=== PATIENT | female | born 1955 | race Caucasian/White ===

== ENCOUNTER 2017-05-11 08:58 | Emergency (ER) | payer OTHER ==
[~2017-05-11] VITALS: Ht 172.7 cm; Wt 72.7 kg
[~2017-05-11 08:58] MED LIST: AMOXICILLIN500 MG PO; AUGMENTIN500TAB PO; BACTRIM DS1 TAB PO; CIPROFLOXACN500 MG PO; CYMBALTA30 MG PO; DOXYCYCL HYC100 MG PO; KEFLEX500 M1 PO; NAPROSYN500 MG PO; PROTONIX40 MG PO; TRAMADOL; TRAMADOL HCL50 MG PO; TRAZODONE50 MG PO; ULTRAM50 M1 PO; ULTRAM50 MG PO
[2017-05-11 11:15] LABS: IMMATURE GRANULOCYTES 0.2 % (0.0-1.0); MEAN CELL VOLUME 100.4 fL CALC (80.0-100.0); MEAN CORPUSCULAR HGB 30.7 pG CALC (26.0-32.0); MEAN CORPUSCULAR HGB CONC 30.5 g/L CALC (32.0-36.0); NEUT# 2.52 thou/uL (2.00-7.15); RED BLOOD COUNT 2.74 mill/uL (4.20-5.60); RED CELL DISTRI WIDTH 15.6 % (11.5-15.5)
[2017-05-11 11:28] LABS: HEMATOCRIT 27.5 % (37.0-47.0); HEMOGLOBIN 8.4 g/dl (12.0-16.0)
[2017-05-11 11:29] LABS: ALBUMIN 3.6 g/dL (3.2-5.0); ALKALINE PHOSPHATASE 204 u/l (38-126); ANION GAP 14 (6-22 (CALC)); BILIRUBIN, TOTAL 0.5 mg/dL (0.0-1.4); BUN 11 mg/dL (7-17); BUN/CREATININE RATIO 15 (12-20 (CALC)); CARBON DIOXIDE 25 mmol/l (22-30); CHLORIDE 110 mmol/l (95-108); CREATININE 0.7 mg/dL (0.5-1.0); GFR > 60 ML/MIN (>=60 (CALC)); GFR FOR AFR.AMER. > 60 ML/MIN (>=60 (CALC)); LIPASE 139 u/l (23-300); POTASSIUM 3.9 mmol/l (3.5-5.1); SGOT/AST 84 u/l (14-36); SGPT/ALT 75 u/l (9-52); SODIUM 145 mmol/l (137-146); TOTAL PROTEIN 7.6 g/dL (6.3-8.2)
[2017-05-11 12:01] LABS: URINE BILIRUBIN - DIPSTICK NEGATIVE (NEGATIVE); URINE BLOOD DIPSTICK NEGATIVE (NEGATIVE); URINE COLOR YELLOW; URINE GLUCOSE - DIPSTICK NEGATIVE (NEGATIVE); URINE KETONE NEGATIVE (NEGATIVE); URINE LEUK ESTERASE TRACE (NEGATIVE); URINE PROTEIN - DIPSTICK NEGATIVE (NEG-TRACE); URINE UROBILINOGEN - DIPSTICK 0.2 E.U./dL (0.2)
[2017-05-11 12:11] LABS: URINE CLARITY HAZY; URINE NITRITE - DIPSTICK POSITIVE (Negative)
[2017-05-11 12:12] LABS: URINE BACTERIA MANY hpf; URINE EPITHELIAL CELLS FEW EPI/hpf (0-FEW)
[2017-05-11] MEDS ORDERED: BACTRIM DS1 TAB PO (13:32)
[2017-05-11 13:52] VITALS: BP 150/92
== END 2017-05-11 13:37 | DRG 690 ==
LOC: ED 08:58
PROVIDERS: Emergency Medicine
DX: N39.0 Urinary tract infection, site not specified (principal); I85.10 Secondary esophageal varices without bleeding; K76.6 Portal hypertension; R18.8 Other ascites; K74.60 Unspecified cirrhosis of liver; R10.84 Generalized abdominal pain
CPT/HCPCS: Q9967

== ENCOUNTER 2017-05-18 17:15 | Emergency (ER) | payer OTHER ==
[~2017-05-18] VITALS: Ht 172.7 cm; Wt 75.0 kg
[2017-05-18 18:22] LABS: IMMATURE GRANULOCYTES 0.8 % (0.0-1.0); MEAN CELL VOLUME 103.6 fL CALC (80.0-100.0); MEAN CORPUSCULAR HGB 28.6 pG CALC (26.0-32.0); MEAN CORPUSCULAR HGB CONC 27.6 g/L CALC (32.0-36.0); RED CELL DISTRI WIDTH 17.2 % (11.5-15.5)
[2017-05-18 18:36] LABS: ALBUMIN 2.6 g/dL (3.2-5.0); BILIRUBIN, TOTAL 1.5 mg/dL (0.0-1.4); CREATININE 1.6 mg/dL (0.5-1.0); POTASSIUM 4.9 mmol/l (3.5-5.1); TOTAL PROTEIN 5.8 g/dL (6.3-8.2)
[2017-05-18 18:58] LABS: HEMATOCRIT 14.5 % (37.0-47.0); PLATELET COUNT 209 thou/uL (130-400)
[2017-05-18 18:59] LABS: BAND 7 % (0-8); MANUAL DIFFERENTIAL YES
[2017-05-18 19:00] LABS: ANISOCYTOSIS FEW; HYPOCHROMIA MARKED; MICROCYTOSIS MODERATE
[2017-05-18 20:09] LABS: INTERNATIONAL NORMALIZED RATIO 2.1 RATIO (0.7-1.3); PROTHROMBIN TIME 24.2 SECONDS (9.0-12.5)
[2017-05-18 20:47] LABS: URINE BILIRUBIN - DIPSTICK NEGATIVE (NEGATIVE); URINE BLOOD DIPSTICK TRACE-INTACT (NEGATIVE); URINE CLARITY CLEAR; URINE COLOR YELLOW; URINE GLUCOSE - DIPSTICK NEGATIVE (NEGATIVE); URINE KETONE TRACE mg/dL (NEGATIVE); URINE LEUK ESTERASE NEGATIVE (NEGATIVE); URINE NITRITE - DIPSTICK NEGATIVE (Negative); URINE PH 5.5 (4.5-8.0); URINE PROTEIN - DIPSTICK NEGATIVE (NEG-TRACE); URINE UROBILINOGEN - DIPSTICK 0.2 E.U./dL (0.2)
[2017-05-18 21:30] VITALS: BP 92/54
[2017-05-18 22:00] VITALS: BP 98/63
[2017-05-18 22:55] VITALS: BP 104/55
== END 2017-05-18 22:55 | DRG 872 ==
LOC: ED 17:15
PROVIDERS: Emergency Medicine; Family Medicine
PROC: 02HV33Z Insertion of Infusion Device into Superior Vena Cava, Percutaneous Approach (ICD-10-PCS; principal; 2017-05-18)
PROC: 30233N1 Transfusion of Nonautologous Red Blood Cells into Peripheral Vein, Percutaneous Approach (ICD-10-PCS; 2017-05-18)
PROC: 30233N1 Transfusion of Nonautologous Red Blood Cells into Peripheral Vein, Percutaneous Approach (ICD-10-PCS; 2017-05-18)
DX: A41.9 Sepsis, unspecified organism (principal); I95.9 Hypotension, unspecified; K74.60 Unspecified cirrhosis of liver; K92.2 Gastrointestinal hemorrhage, unspecified; B19.20 Unspecified viral hepatitis C without hepatic coma; D64.9 Anemia, unspecified; E16.2 Hypoglycemia, unspecified; R42 Dizziness and giddiness
CPT/HCPCS: P9016; S0164

== ENCOUNTER 2017-06-11 09:57 | Emergency (ER) | payer OTHER ==
[~2017-06-11] VITALS: Ht 172.7 cm; Wt 90.0 kg
[2017-06-11 11:05] LABS: HEMATOCRIT 34.6 % (37.0-47.0); HEMOGLOBIN 10.7 g/dl (12.0-16.0); MEAN CELL VOLUME 92.5 fL CALC (80.0-100.0); MEAN CORPUSCULAR HGB 28.6 pG CALC (26.0-32.0); MEAN CORPUSCULAR HGB CONC 30.9 g/L CALC (32.0-36.0); NEUT# 1.57 thou/uL (2.00-7.15); RED BLOOD COUNT 3.74 mill/uL (4.20-5.60); RED CELL DISTRI WIDTH 18.2 % (11.5-15.5)
[2017-06-11 11:26] LABS: ALBUMIN 3.1 g/dL (3.2-5.0); ALKALINE PHOSPHATASE 170 u/l (38-126); AMYLASE 99 u/l (30-110); ANION GAP 14 (6-22 (CALC)); BILIRUBIN, TOTAL 1.2 mg/dL (0.0-1.4); BUN 5 mg/dL (7-17); BUN/CREATININE RATIO 8 (12-20 (CALC)); CARBON DIOXIDE 29 mmol/l (22-30); CHLORIDE 102 mmol/l (95-108); CREATININE 0.7 mg/dL (0.5-1.0); GFR > 60 ML/MIN (>=60 (CALC)); GFR FOR AFR.AMER. > 60 ML/MIN (>=60 (CALC)); LIPASE 142 u/l (23-300); POTASSIUM 2.9 mmol/l (3.5-5.1); SGOT/AST 113 u/l (14-36); SGPT/ALT 67 u/l (9-52); SODIUM 142 mmol/l (137-146); TOTAL PROTEIN 8.1 g/dL (6.3-8.2)
[2017-06-11 11:37] LABS: MYOGLOBIN 43 ng/mL (0 - 62)
[2017-06-11 15:10] VITALS: BP 119/67
== END 2017-06-11 15:10 | disposition home or self-care (01) | DRG 313 ==
LOC: ED 09:57
PROVIDERS: Emergency Medicine
PROC: 0W9G30Z Drainage of Peritoneal Cavity with Drainage Device, Percutaneous Approach (ICD-10-PCS; principal; 2017-06-11)
DX: R07.9 Chest pain, unspecified (principal); R18.8 Other ascites; B19.20 Unspecified viral hepatitis C without hepatic coma

== ENCOUNTER 2019-06-24 | Emergency (ER) | payer OTHER ==
[2019-06-24] MEDS ORDERED: TRAMADOL HCL50 MG PO (14:10)
[2019-06-24] MEDS ORDERED: OMEPRAZOLE20 MG PO (14:14)
[2019-06-24] MEDS ORDERED: TRAZODONE50 MG PO (14:14)
[2019-06-24] MEDS ORDERED: GABAPENTIN100 MG PO (14:14)
== END 2019-06-24 14:19 | disposition home or self-care (01) ==
DX: S43.402A Unspecified sprain of left shoulder joint, initial encounter (principal); S50.12XA Contusion of left forearm, initial encounter; W01.198A Fall on same level from slipping, tripping and stumbling with subsequent striking against other object, initial encounter

== ENCOUNTER 2019-11-13 14:59 | Emergency (ER) | payer OTHER ==
[~2019-11-13] VITALS: Ht 172.7 cm; Wt 55.0 kg
[~2019-11-13 14:59] MED LIST changes: +GABAPENTIN100 MG PO; +OMEPRAZOLE20 MG PO
[2019-11-13 15:39] LABS: ALBUMIN 3.3 g/dL (3.2-5.0); BUN 32 mg/dL (8-23); BUN/CREATININE RATIO 31 (12-20 (CALC)); GFR 56 ML/MIN (>=60 (CALC)); GFR FOR AFR.AMER. > 60 ML/MIN (>=60 (CALC))
[2019-11-13 15:46] LABS: RED BLOOD COUNT 1.93 mill/uL (4.20-5.60)
[2019-11-13 15:48] LABS: HEMATOCRIT 16.5 % (37.0-47.0); HEMOGLOBIN 4.6 g/dl (12.0-16.0)
[2019-11-13 15:49] LABS: MYOGLOBIN 49 ng/mL (0 - 62)
[2019-11-13 15:50] LABS: MEAN CELL VOLUME 85.5 fL CALC (80.0-100.0)
[2019-11-13 15:51] LABS: BASO% 0 % (0-3); EOS% 0 % (0-8); LYMPH% 5 % (15-41); MEAN CORPUSCULAR HGB 23.8 pG CALC (26.0-32.0); MEAN CORPUSCULAR HGB CONC 27.9 g/dL CAL (32.0-36.0); MONO% 5 % (2-13); NEUT% 90 % (42-76); PLATELET COUNT 158 thou/uL (130-400); RED CELL DISTRI WIDTH 20.1 % (11.5-15.5)
[2019-11-13 16:06] VITALS: BP 104/53
[2019-11-13 16:06] LABS: SODIUM 132 mmol/l (137-146)
[2019-11-13 16:07] LABS: ALKALINE PHOSPHATASE 78 u/l (38-126); ANION GAP 36 (6-22 (CALC)); BILIRUBIN, TOTAL 2.9 mg/dL (0.0-1.4); CARBON DIOXIDE 5 mmol/l (22-30); CHLORIDE 95 mmol/l (95-108); POTASSIUM 4.4 mmol/l (3.5-5.1); SGOT/AST 714 u/l (9-36)
[2019-11-13 16:22] VITALS: BP 96/53
[2019-11-17 16:00] VITALS: BP 96/53
== END 2019-11-13 16:35 | disposition short-term general hospital (02) ==
LOC: ED 14:59
PROVIDERS: Emergency Medicine
DX: K92.0 Hematemesis (principal); D62 Acute posthemorrhagic anemia; B19.20 Unspecified viral hepatitis C without hepatic coma; E16.2 Hypoglycemia, unspecified; E72.20 Disorder of urea cycle metabolism, unspecified; E87.2 Acidosis; R79.89 Other specified abnormal findings of blood chemistry; Z20.828 Contact with and (suspected) exposure to other viral communicable diseases
CPT/HCPCS: P9016; S0164

== ENCOUNTER 2021-02-16 18:19 | Observation (INO) | payer OTHER ==
[~2021-02-16] VITALS: Ht 172.7 cm; Wt 41.0 kg
[2021-02-16 19:56] LABS: IMMATURE GRANULOCYTES 0.3 % (0.0-5.0); MEAN CORPUSCULAR HGB 31.1 pG CALC (26.0-32.0); MEAN CORPUSCULAR HGB CONC 31.9 g/dL CAL (32.0-36.0); NEUT# 2.57 thou/uL (2.00-7.15); RED BLOOD COUNT 3.7 mill/uL (4.20-5.60); RED CELL DISTRI WIDTH 14.9 % (11.5-15.5)
[2021-02-16 20:03] LABS: HEMATOCRIT 36.1 % (37.0-47.0); HEMOGLOBIN 11.5 g/dl (12.0-16.0); MEAN CELL VOLUME 97.6 fL CALC (80.0-100.0)
[2021-02-16 20:19] LABS: BILIRUBIN, TOTAL 2.4 mg/dL (0.0-1.4); BUN 13 mg/dL (8-23); BUN/CREATININE RATIO 23 (12-20 (CALC)); CREATININE 0.6 mg/dL (0.5-1.0); GFR > 60 ML/MIN (>=60 (CALC)); GFR FOR AFR.AMER. > 60 ML/MIN (>=60 (CALC)); LIPASE 253 u/l (23-300); SGOT/AST 605 u/l (9-36)
[2021-02-16 20:21] LABS: ACT PARTIAL THROMBO TIME 19.8 SECONDS (20.0-32.5); INTERNATIONAL NORMALIZED RATIO 1.4 RATIO (0.7-1.3); PROTHROMBIN TIME 13.9 SECONDS (9.0-12.5)
[2021-02-16 20:32] LABS: ALBUMIN 4.1 g/dL (3.2-5.0); ALKALINE PHOSPHATASE 144 u/l (38-126); ANION GAP 18 (6-22 (CALC)); CARBON DIOXIDE 24 mmol/l (22-30); CHLORIDE 109 mmol/l (95-108); SODIUM 146 mmol/l (137-146); TOTAL PROTEIN 8.1 g/dL (6.3-8.2)
[2021-02-16 20:33] LABS: ETHYL ALCOHOL 519 mg/dl (0-30)
[2021-02-16 23:00] VITALS: BP 102/55
[2021-02-16 23:15] VITALS: BP 87/57
[2021-02-16 23:30] VITALS: BP 94/53
[2021-02-16 23:45] VITALS: BP 106/67
[2021-02-17] VITALS (17 sets, daily range): BP systolic 86–101; BP diastolic 43–63
[2021-02-17] MEDS ORDERED: METHOCARBAMOL500 MG PO (14:45)
[2021-02-17] MEDS ORDERED: FE TABS325 MG PO (14:45)
[2021-02-17] MEDS ORDERED: PROTONIX40 M2 PO (14:46)
[2021-02-17] MEDS ORDERED: LACTULOSE PO (14:47)
[2021-02-17 15:08] LABS: URINE BLOOD DIPSTICK TRACE-INTACT (NEGATIVE); URINE COLOR YELLOW; URINE GLUCOSE - DIPSTICK NEGATIVE (NEGATIVE); URINE KETONE 15 mg/dL (NEGATIVE); URINE PH 6.5 (4.5-8.0); URINE PROTEIN - DIPSTICK NEGATIVE (NEG-TRACE)
[2021-02-17 15:15] LABS: URINE BILIRUBIN - DIPSTICK SMALL (NEGATIVE); URINE LEUK ESTERASE MODERATE (NEGATIVE); URINE NITRITE - DIPSTICK NEGATIVE (Negative)
[2021-02-17 15:21] LABS: URINE BACTERIA MANY hpf; URINE RBC 0-2 RBC/hpf (0-5); URINE SQUAMOUS EPITHELIAL CELL FEW EPI/hpf (0-FEW)
[2021-02-18] VITALS (9 sets, daily range): BP systolic 91–118; BP diastolic 42–63
[2021-02-18 05:31] LABS: ALKALINE PHOSPHATASE 101 u/l (38-126); BILIRUBIN, TOTAL 2.5 mg/dL (0.0-1.4); BUN 11 mg/dL (8-23); BUN/CREATININE RATIO 19 (12-20 (CALC)); CARBON DIOXIDE 24 mmol/l (22-30); CHLORIDE 112 mmol/l (95-108); CREATININE 0.6 mg/dL (0.5-1.0); GFR > 60 ML/MIN (>=60 (CALC)); GFR FOR AFR.AMER. > 60 ML/MIN (>=60 (CALC)); INTERNATIONAL NORMALIZED RATIO 1.5 RATIO (0.7-1.3); MAGNESIUM 1.6 mg/dL (1.6-2.3); PROTHROMBIN TIME 15.6 SECONDS (9.0-12.5); SGOT/AST 333 u/l (9-36)
[2021-02-18 05:35] LABS: MEAN CELL VOLUME 96.1 fL CALC (80.0-100.0); MEAN CORPUSCULAR HGB 31.8 pG CALC (26.0-32.0); MEAN CORPUSCULAR HGB CONC 33.1 g/dL CAL (32.0-36.0); RED BLOOD COUNT 2.83 mill/uL (4.20-5.60); RED CELL DISTRI WIDTH 15.2 % (11.5-15.5)
[2021-02-18 05:43] LABS: ALBUMIN 2.8 g/dL (3.2-5.0); ANION GAP 6 (6-22 (CALC)); POTASSIUM 3.8 mmol/l (3.5-5.1); SODIUM 138 mmol/l (137-146); TOTAL PROTEIN 5.8 g/dL (6.3-8.2)
[2021-02-18 06:15] LABS: HEMATOCRIT 27.2 % (37.0-47.0)
[2021-02-18] MEDS ORDERED: LIBRIUM25 M1 PO (09:50)
== END 2021-02-18 12:18 | disposition home or self-care (01) ==
LOC: ED 18:19 → ED-I 22:05 → ED 22:16 → ICU 22:17
PROVIDERS: ADMIT Internal Medicine; ATTEND Internal Medicine
DX: F10.229 Alcohol dependence with intoxication, unspecified (principal); K70.10 Alcoholic hepatitis without ascites; K70.30 Alcoholic cirrhosis of liver without ascites; E87.2 Acidosis; G31.2 Degeneration of nervous system due to alcohol; D69.6 Thrombocytopenia, unspecified; D63.8 Anemia in other chronic diseases classified elsewhere; G89.29 Other chronic pain; B19.20 Unspecified viral hepatitis C without hepatic coma; S70.02XA Contusion of left hip, initial encounter; Y90.8 Blood alcohol level of 240 mg/100 ml or more; X58.XXXA Exposure to other specified factors, initial encounter
CPT/HCPCS: J1650; J2060; S0164